=== PATIENT | male | born 1950 | race Caucasian/White ===

== ENCOUNTER 2017-11-14 07:51 | Day surgery (SDC) | payer OTHER, MEDICARE ==
[2017-11-14] MEDS: Polymyxin B/Trimethoprim 10 ML Bottle EYERT SCH ×4 (09:21→11:19)
[2017-11-14] MEDS: Brimonidine 0.2% Ophth Soln 5 ML Bottle EYERT SCH ×4 (09:28→11:19)
[2017-11-14] MEDS: Phenylephrine 2.5% Ophth Soln 2 ML Bot EYERT SCH ×6 (09:35→10:56)
--- NOTE | 2017-11-14 09:46 | PCM.PREANE ---
Preanesthetic Assessment - Anesthesia/Transfusion/Family Hx Anesthesia History: Prior Anesthesia Without Reaction Family History of Anesthesia Reaction: No Transfusion History: No Prior Transfusion(s) - Review of Systems General: No Symptoms Pulmonary: No Symptoms Cardiovascular: Other (HTN, afib controlled with meds and has had an ablation) Gastrointestinal: No Symptoms Neurological: No Symptoms - Physical Assessment NPO Status Date: 11/13/17 NPO Status Time: 22:00 Pulse: 76 O2 Sat by Pulse Oximetry: 98 Respiratory Rate: 16 Blood Pressure: 140/84 Vital Signs: Last Vital Signs Temp 36.3 C 11/14/17 09:17 Pulse 76 11/14/17 09:17 Resp 16 11/14/17 09:17 BP 140/84 11/14/17 09:17 Pulse Ox 98 11/14/17 09:17 Height: 1.8 m Weight: 113.398 kg ASA Class: 2 Mental Status: Alert & Oriented x3 Airway Class: Mallampati = 2 Dentition: Reports: Normal Dentition Thyro-Mental Finger Breadths: 3 Mouth Opening Finger Breadths: 3 ROM/Head Extension: Full Lungs: Clear to Auscultation, Normal Respiratory Effort Cardiovascular: Regular Rate, Regular Rhythm - Allergies Allergies/Adverse Reactions: Allergies Allergy/AdvReac Type Severity Reaction Status Date / Time No Known Allergies Allergy Verified 11/13/17 15:05 - Blood Blood Available: No Product(s) Available: None - Anesthesia Plan Beta Khadra: Metoprolol Med Last Dose Date: 11/14/17 Med Last Dose Time: 06:00 - Acknowledgements Anesthesia Type Planned: MAC Pt an Appropriate Candidate for the Planned Anesthesia: Yes Alternatives and Risks of Anesthesia Discussed w Pt/Guardian: Yes Pt/Guardian Understands and Agrees with Anesthesia Plan: Yes PreAnesthesia Questionnaire - HOME MEDS Home Medications: Home Meds Aspirin [Halfprin] 81 mg PO DAILY 11/13/17 [History] Cyanocobalamin/FA/Pyridoxine [Folbic] 1 tab PO DAILY 11/13/17 [History] Iron 18 mg PO DAILY 11/13/17 [History] Metoprolol Succinate 50 mg PO DAILY 11/13/17 [History] Multivitamin [Poly-Vitamin] 1 tab PO DAILY 11/13/17 [History] Rivaroxaban [Xarelto] 20 mg PO DAILY 11/13/17 [History] Sildenafil [Viagra] 100 mg PO ASDIRECTED PRN 11/13/17 [History] Trandolapril [Trandolapril] 2 mg PO DAILY 11/13/17 [History] atorvaSTATin [Lipitor] 10 mg PO DAILY 11/13/17 [History] - CURRENT (IN HOUSE) MEDS Current Meds: Current Medications Brimonidine Tartrate (Alphagan 0.2% Ophth Soln) 0 ml EYERT ASDIRECTED LAKESHA Stop: 11/14/17 18:00 Last Admin: 11/14/17 09:28 Dose: 1 drop Cefuroxime Sodium (Zinacef) 0 mg EYERT ASDIRECTED LAKESHA Stop: 11/14/17 18:00 Lidocaine HCl (Xylocaine-Mpf 1%) 10 ml INJECT ASDIRECTED LAKESHA Stop: 11/14/17 18:00 Phenylephrine HCl (Erlin-Synephrine 2.5% Ophth Soln) 0 ml EYERT ASDIRECTED LAKESHA Stop: 11/14/17 18:00 Last Admin: 11/14/17 09:35 Dose: 1 drop Pilocarpine HCl (Pilocar 4% Ophth Soln) 0 ml EYERT ASDIRECTED LAKESHA Stop: 11/14/17 18:00 Polymyxin/Trimethoprim Sulfate (Polytrim Ophth Soln) 0 ml EYERT ASDIRECTED LAKESHA Stop: 11/14/17 18:00 Last Admin: 11/14/17 09:21 Dose: 1 drop Tetracaine HCl (Tetracaine 0.5% Steri-Unit Soheila) 0 ml EYERT ASDIRECTED LAKESHA Stop: 11/14/17 18:00 Tropicamide (Mydriacyl 1% Ophth Soln) 0 ml EYERT ASDIRECTED LAKESHA Stop: 11/14/17 18:00
[2017-11-14] MEDS: Cefuroxime 10 MG/ML SYRINGE EYERT SCH ×2 (10:37→11:18)
[2017-11-14] MEDS: Pilocarpine 4% Ophth Soln 15 ML Bot EYERT SCH ×2 (10:37→11:19)
[2017-11-14] MEDS: Tetracaine HCl/PF 0.5% 4 ML Bottle EYERT SCH ×3 (10:37→11:06)
[2017-11-14] MEDS: Lidocaine 1% PF 2 ML SDV INJECT SCH ×2 (10:37→11:06)
--- NOTE | 2017-11-14 11:20 | PCM48HPAN ---
Post Anesthesia Note - EVALUATION WITHIN 48HRS OF ANESTHETIC Vital Signs in Normal Range: Yes Patient Participated in Evaluation: Yes Respiratory Function Stable: Yes Airway Patent: Yes Cardiovascular Function Stable: Yes Hydration Status Stable: Yes Pain Control Satisfactory: Yes Nausea and Vomiting Control Satisfactory: Yes Mental Status Recovered: Yes Pulse Rate: 76 SaO2: 100 Resp Rate: 16 Temperature: 36 C Blood Pressure: 152/100
== END 2017-11-14 11:30 | disposition home or self-care (01) ==
LOC: JD.SDS 07:51
PROVIDERS: ATTEND Ophthalmology
DX: H25.813 Combined forms of age-related cataract, bilateral (principal); H16.223 Keratoconjunctivitis sicca, not specified as Sjogren's, bilateral; H16.103 Unspecified superficial keratitis, bilateral; H02.834 Dermatochalasis of left upper eyelid; H02.831 Dermatochalasis of right upper eyelid; E11.9 Type 2 diabetes mellitus without complications; I10 Essential (primary) hypertension; Z98.84 Bariatric surgery status; Z79.82 Long term (current) use of aspirin; Z79.899 Other long term (current) drug therapy; Z79.01 Long term (current) use of anticoagulants
CPT/HCPCS: 66984; J0697; A9270-GY; C1780; J2001

== ENCOUNTER 2017-12-12 07:40 | Day surgery (SDC) | payer OTHER, MEDICARE ==
[~2017-12-12 07:40] MED LIST: Cefuroxime 10 MG/ML SYRINGE EYELF SCH; Lidocaine 1% PF 2 ML SDV INJECT SCH; Pilocarpine 4% Ophth Soln 15 ML Bot EYELF SCH
[2017-12-12] MEDS: Polymyxin B/Trimethoprim 10 ML Bottle EYELF SCH ×3 (07:59→09:54)
[2017-12-12] MEDS: Brimonidine 0.2% Ophth Soln 5 ML Bottle EYELF SCH ×3 (08:04→09:54)
--- NOTE | 2017-12-12 08:07 | PCM.PREANE ---
Preanesthetic Assessment - Anesthesia/Transfusion/Family Hx Anesthesia History: Prior Anesthesia Without Reaction Family History of Anesthesia Reaction: No Transfusion History: No Prior Transfusion(s) - Review of Systems General: No Symptoms Pulmonary: No Symptoms Cardiovascular: No Symptoms Gastrointestinal: No Symptoms Neurological: No Symptoms Other: Reports: None - Physical Assessment NPO Status Date: 12/11/17 NPO Status Time: 00:00 Pulse: 51 O2 Sat by Pulse Oximetry: 99 Respiratory Rate: 14 Blood Pressure: 152/86 Temperature: 35.8 C Height: 1.8 m Weight: 113.398 kg ASA Class: 2 Mental Status: Alert & Oriented x3 Airway Class: Mallampati = 1 Dentition: Reports: Normal Dentition, Missing Tooth/Teeth Thyro-Mental Finger Breadths: 3 Mouth Opening Finger Breadths: 3 ROM/Head Extension: Full Lungs: Clear to Auscultation, Normal Respiratory Effort Cardiovascular: Regular Rhythm, Irregular Rhythm - Allergies Allergies/Adverse Reactions: Allergies Allergy/AdvReac Type Severity Reaction Status Date / Time No Known Allergies Allergy Verified 12/11/17 11:17 - Blood Blood Available: No Product(s) Available: None - Anesthesia Plan Pre-Op Medication Ordered: Beta Khadra Beta Khadra: Metoprolol Med Last Dose Date: 12/12/17 Med Last Dose Time: 07:00 - Acknowledgements Anesthesia Type Planned: MAC Pt an Appropriate Candidate for the Planned Anesthesia: Yes Alternatives and Risks of Anesthesia Discussed w Pt/Guardian: Yes Pt/Guardian Understands and Agrees with Anesthesia Plan: Yes PreAnesthesia Questionnaire - SUBSTANCE USE Smoking Status *Q: Never Smoker Tobacco Use Within Last Twelve Months: No Second Hand Smoke Exposure: No Days Per Week of Alcohol Use: 2 Number of Drinks Per Day: 0 Total Drinks Per Week: 0 Recreational Drug Use History: No - HOME MEDS Home Medications: Home Meds Aspirin [Halfprin] 81 mg PO DAILY 11/13/17 [History] Cyanocobalamin/FA/Pyridoxine [Folbic] 1 tab PO DAILY 11/13/17 [History] Iron 18 mg PO DAILY 11/13/17 [History] Metoprolol Succinate 50 mg PO DAILY 11/13/17 [History] Multivitamin [Poly-Vitamin] 1 tab PO DAILY 11/13/17 [History] Rivaroxaban [Xarelto] 20 mg PO DAILY 11/13/17 [History] Sildenafil [Viagra] 100 mg PO ASDIRECTED PRN 11/13/17 [History] Trandolapril 2 mg PO DAILY 11/13/17 [History] atorvaSTATin [Lipitor] 10 mg PO DAILY 11/13/17 [History] - CURRENT (IN HOUSE) MEDS Current Meds: Current Medications Brimonidine Tartrate (Alphagan 0.2% Ophth Soln) 0 ml EYELF ASDIRECTED LAKESHA Stop: 12/12/17 18:00 Cefuroxime Sodium (Zinacef) 0 mg EYELF ASDIRECTED LAKESHA Stop: 12/12/17 18:00 Lidocaine HCl (Xylocaine-Mpf 1%) 10 ml INJECT ASDIRECTED LAKESHA Stop: 12/12/17 18:00 Phenylephrine HCl (Erlin-Synephrine 2.5% Ophth Soln) 0 ml EYELF ASDIRECTED LAKESHA Stop: 12/12/17 18:00 Pilocarpine HCl (Pilocar 4% Ophth Soln) 0 ml EYELF ASDIRECTED LAKESHA Stop: 12/12/17 18:00 Polymyxin/Trimethoprim Sulfate (Polytrim Ophth Soln) 0 ml EYELF ASDIRECTED LAKESHA Stop: 12/12/17 18:00 Last Admin: 12/12/17 07:59 Dose: 1 drop Tetracaine HCl (Tetracaine 0.5% Steri-Unit Soheila) 0 ml EYELF ASDIRECTED LAKESHA Stop: 12/12/17 18:00 Tropicamide (Mydriacyl 1% Ophth Soln) 0 ml EYELF ASDIRECTED LAKESHA Stop: 12/12/17 18:00 Discontinued Medications Tropicamide (Mydriacyl 1% Ophth Soln) 0 ml EYELF ASDIRECTED LAKESHA Stop: 12/12/17 18:00
[2017-12-12] MEDS: Phenylephrine 2.5% Ophth Soln 2 ML Bot EYELF SCH ×5 (08:10→09:36)
[2017-12-12] MEDS: Tropicamide 1% Ophth Soln 3 ML Bottle EYELF SCH ×4 (08:16→09:06)
[2017-12-12] MEDS: Tetracaine HCl/PF 0.5% 4 ML Bottle EYELF SCH ×2 (09:26→09:45)
--- NOTE | 2017-12-12 10:02 | PCM48HPAN ---
Post Anesthesia Note - EVALUATION WITHIN 48HRS OF ANESTHETIC Vital Signs in Normal Range: Yes Patient Participated in Evaluation: Yes Respiratory Function Stable: Yes Airway Patent: Yes Cardiovascular Function Stable: Yes Hydration Status Stable: Yes Pain Control Satisfactory: Yes Nausea and Vomiting Control Satisfactory: Yes Mental Status Recovered: Yes
== END 2017-12-12 10:10 | disposition home or self-care (01) ==
LOC: JD.SDS 07:40
PROVIDERS: ATTEND Ophthalmology
DX: H26.9 Unspecified cataract (principal); E11.36 Type 2 diabetes mellitus with diabetic cataract; I10 Essential (primary) hypertension; Z79.82 Long term (current) use of aspirin; Z79.01 Long term (current) use of anticoagulants; Z79.899 Other long term (current) drug therapy
CPT/HCPCS: 66984; C1780; J0697; A9270-GY

== ENCOUNTER 2021-02-09 07:05 | Day surgery (SDC) | payer MEDICARE, BC ==
--- NOTE | 2021-02-09 06:50 | PCM.PREANE ---
Preanesthetic Assessment - Procedure Proposed Procedure: Colonoscopy - Anesthesia/Transfusion/Family Hx Anesthesia History: Prior Anesthesia Without Reaction Family History of Anesthesia Reaction: No Transfusion History: No Prior Transfusion(s) Intubation History: Unknown - Review of Systems General: No Symptoms Pulmonary: No Symptoms Cardiovascular: No Symptoms Gastrointestinal: No Symptoms Neurological: No Symptoms Other: Reports: Easy Bleeding, Easy Bruising - Physical Assessment NPO Status Date: 02/08/21 NPO Status Time: 21:00 Vital Signs: 148/79 HR 59 16 96% 97.2 Height: 1.8 m Weight: 115 kg ASA Class: 3 Mental Status: Alert & Oriented x3 Dentition: Reports: Broken Tooth/Teeth, Missing Tooth/Teeth, Caries Thyro-Mental Finger Breadths: 3 Mouth Opening Finger Breadths: 3 ROM/Head Extension: Full Lungs: Clear to Auscultation, Normal Respiratory Effort Cardiovascular: Irregular Rhythm - Imaging/EKG Impressions: EKG 03/23/2019 Afib RBBB - Allergies Allergies/Adverse Reactions: Allergies Allergy/AdvReac Type Severity Reaction Status Date / Time morphine Allergy Hallucinati Verified 02/08/21 12:08 ons - Blood Blood Available: No Product(s) Available: None - Anesthesia Plan Pre-Op Medication Ordered: None Beta Khadra: Metoprolol Med Last Dose Date: 02/09/21 Med Last Dose Time: 05:30 - Acknowledgements Anesthesia Type Planned: MAC Pt an Appropriate Candidate for the Planned Anesthesia: Yes Alternatives and Risks of Anesthesia Discussed w Pt/Guardian: Yes Pt/Guardian Understands and Agrees with Anesthesia Plan: Yes PreAnesthesia Questionnaire HEENT History: Reports: Impaired Vision, Other (See Below) Other HEENT History: wears glasses Cardiovascular History: Reports: Afib, Other (See Below) Other Cardiovascular History: bleeding varicose vein, chronic venous insufficien cy, edema, aflutter, right bundle branch block, has stent Respiratory History: Reports: Sleep Apnea Gastrointestinal History: Reports: Colon Polyp Genitourinary History: Reports: Other (See Below) Other Genitourinary History: erectile dysfunction [employer] History: Reports: None Musculoskeletal History: Reports: Osteoarthritis, Other (See Below) Other Musculoskeletal History: left knee surgery Neurological History: Reports: Other (See Below) Other Neuro History: neck pain Psychiatric History: Reports: Other (See Below) Other Psychiatric History: fatigue Endocrine/Metabolic History: Reports: Diabetes, Type II Other Endocrine/Metabolic History: Diabetes under control since gastric bypass Hematologic History: Reports: Anemia, Iron Deficiency Immunologic History: Reports: None Oncologic (Cancer) History: Reports: None Dermatologic History: Reports: None - Past Surgical History Head Surgeries/Procedures: Reports: None HEENT Surgical History: Reports: Cataract Surgery Respiratory Surgical History: Reports: None GI Surgical History: Reports: Bariatric Procedure, Colonoscopy Female Surgical History: Reports: None Male Surgical History: Reports: None Endocrine Surgical History: Reports: None Neurological Surgical History: Reports: None Musculoskeletal Surgical History: Reports: Other (See Below) Other Musculoskeletal Surgeries/Procedures:: Knee surgery Oncologic Surgical History: Reports: None Dermatological Surgical History: Reports: None - Past Imaging History Past Imaging History: Reports: Cardiac Echo (05/04/20: EF 35-40%; moderate decrease in LV systolic function; severely dilated L atrium, mild tricuspid valve regurg) - SUBSTANCE USE Tobacco Use Status *Q: Former Tobacco User Second Hand Smoke Exposure: No Days Per Week of Alcohol Use: 7 Number of Drinks Per Day: 2 Total Drinks Per Week: 14 Recreational Drug Use History: No - HOME MEDS Home Medications: Home Meds Aspirin [Halfprin] 81 mg PO DAILY 11/13/17 [History] Metoprolol Succinate 50 mg PO DAILY 11/13/17 [History] Multivitamin [Poly-Vitamin] 1 tab PO DAILY 11/13/17 [History] Rivaroxaban [Xarelto] 20 mg PO DAILY 11/13/17 [History] Trandolapril 2 mg PO DAILY 11/13/17 [History] atorvaSTATin [Lipitor] 10 mg PO DAILY 11/13/17 [History] Cyanocobalamin/FA/Pyridoxine [Folbic] 1 tab PO DAILY 02/08/21 [History] Ferrous Sulfate [Iron] 325 mg PO DAILY 02/08/21 [History] Tadalafil [Cialis] 20 mg PO ASDIRECTED PRN 02/08/21 [History] amLODIPine [Norvasc] 5 mg PO DAILY 02/08/21 [History] - CURRENT (IN HOUSE) MEDS Current Meds: Current Medications Lactated Ringer's (Ringers, Lactated) 1,000 mls @ 125 mls/hr IV ASDIRECTED LAKESHA Stop: 02/09/21 23:00 Lidocaine/Sodium Bicarbonate (Lidocaine 1%/Sod Bicarbonate In Ns 8.4% 1 Ml Syringe) 0.25 ml IDERM ONETIME PRN PRN Reason: Prior to IV Start Stop: 02/09/21 18:00 Sodium Chloride (Sodium Chloride 0.9% 10 Ml Syringe) 10 ml FLUSH ASDIRECTED PRN PRN Reason: Keep Vein Open Stop: 02/09/21 18:00
[~2021-02-09 07:05] MED LIST changes: -Cefuroxime 10 MG/ML SYRINGE EYELF SCH; +Lactated Ringers 1,000 ML IV SCH; -Lidocaine 1% PF 2 ML SDV INJECT SCH; +Lidocaine 1%/Sod Bicarbonate in NS 8.4% 1 ML Syringe IDERM PRN; -Pilocarpine 4% Ophth Soln 15 ML Bot EYELF SCH; +Sodium Chloride 0.9% 10 ML Syringe FLUSH PRN
[2021-02-09] MEDS ORDERED: Propofol 200 MG/20 ML SDV ONE ×2 (07:08→08:32)
[2021-02-09] MEDS ORDERED: EPINEPHrine 1 MG/ML SDV ONE (07:13)
--- NOTE | 2021-02-09 08:56 | PCM48HPAN ---
Post Anesthesia Note - EVALUATION WITHIN 48HRS OF ANESTHETIC Vital Signs in Normal Range: Yes Patient Participated in Evaluation: Yes Respiratory Function Stable: Yes Airway Patent: Yes Cardiovascular Function Stable: Yes Hydration Status Stable: Yes Pain Control Satisfactory: Yes Nausea and Vomiting Control Satisfactory: Yes Mental Status Recovered: Yes Vital Signs: Last Vital Signs Temp 97.2 F 02/09/21 07:15 Pulse 59 L 02/09/21 07:15 Resp 16 02/09/21 07:15 BP 148/79 H 02/09/21 07:15 Pulse Ox 96 02/09/21 07:15 0851: 129/71 HR 71 16 97.7 93%
--- NOTE | 2021-02-09 09:01 | PCM.PRNOTE ---
- Free Text/Narrative Note: Date: 02/09/2021 Procedure: screening colonoscopy History: last scope five years ago with three tubular adenomas removed Endoscopist: Eddi Valle MD Findings: small external hard papillary lesion at posterior anus with some nodularity at its base. Prep was fair. Cecum reached. Two small sessile polyps removed. Internal hemorrhoids. Detailed Report: The patient was taken to the endoscopy suite and placed in left lateral decubitus position. Timeout was performed and monitored anesthesia care was initiated. On visual inspection of the anus, there was a small subcentimeter tag the posterior aspect. This tissue was hardened, and at its base were a few very small nodules. This lesion may be consistent with a small external hemorrhoidal skin tag or sentinel pile, versus some other more unusual pathology. Digital rectal exam was unremarkable. The colonoscope was inserted and advanced all the way to the cecum. The appendiceal orifice was visualized. Prep was fair, with a large amount of murky fluid and fine particulate matter, more in the proximal colon. The scope was slowly withdrawn and mucosal surfaces carefully inspected. In the ascending colon, a subcentimeter sessile polyp was identified. This was removed using hot snare polypectomy technique. The only other lesion was a small sessile polyp less than 1 cm in the descending colon, which was removed in similar fashion. No diverticular disease was appreciated. On retroflexion within the rectum, internal hemorrhoids were noted. Air was suctioned from the distal colon and rectum prior to withdrawal of the scope. The patient tolerated the procedure well.
== END 2021-02-09 09:25 | disposition home or self-care (01) ==
LOC: JD.SDS 07:05
PROVIDERS: ATTEND Surgery
DX: Z12.11 Encounter for screening for malignant neoplasm of colon (principal); D12.2 Benign neoplasm of ascending colon; D12.4 Benign neoplasm of descending colon; K64.4 Residual hemorrhoidal skin tags; K64.8 Other hemorrhoids; I48.91 Unspecified atrial fibrillation; I25.10 Atherosclerotic heart disease of native coronary artery without angina pectoris; I50.9 Heart failure, unspecified; I11.0 Hypertensive heart disease with heart failure; E11.9 Type 2 diabetes mellitus without complications; E78.5 Hyperlipidemia, unspecified; Z88.5 Allergy status to narcotic agent; Z79.82 Long term (current) use of aspirin; Z79.899 Other long term (current) drug therapy; Z98.890 Other specified postprocedural states; Z68.37 Body mass index [BMI] 37.0-37.9, adult; Z87.891 Personal history of nicotine dependence
CPT/HCPCS: 45385; J2704; J7120; 00812; 88305; 99100; J0171

== ENCOUNTER 2025-04-29 08:43 | Day surgery (SDC) | payer MEDICARE ==
[~2025-04-29 08:43] MED LIST changes: -Lactated Ringers 1,000 ML IV SCH; -Lidocaine 1%/Sod Bicarbonate in NS 8.4% 1 ML Syringe IDERM PRN; +Sodium Chloride 0.9% 10 ML Syringe FLUSH SCH
[2025-04-29] MEDS: Lactated Ringers 1,000 ML IV SCH (09:10)
[2025-04-29] MEDS ORDERED: propofoL 500 MG/50 ML 50 ML ONE (10:04)
== END 2025-04-29 11:35 | disposition home or self-care (01) ==
LOC: JD.SDS 08:43
PROVIDERS: ATTEND Surgery
DX: Z12.11 Encounter for screening for malignant neoplasm of colon (principal); K64.0 First degree hemorrhoids; R19.5 Other fecal abnormalities; I48.91 Unspecified atrial fibrillation; I25.10 Atherosclerotic heart disease of native coronary artery without angina pectoris; E10.9 Type 1 diabetes mellitus without complications; I11.0 Hypertensive heart disease with heart failure; I50.9 Heart failure, unspecified; Z80.0 Family history of malignant neoplasm of digestive organs; Z79.01 Long term (current) use of anticoagulants; Z88.5 Allergy status to narcotic agent; Z79.82 Long term (current) use of aspirin; Z79.899 Other long term (current) drug therapy; Z86.0101 Personal history of adenomatous and serrated colon polyps
CPT/HCPCS: J2704; J7120